=== PATIENT | female | born 1980 | race African-American/Black ===

== ENCOUNTER 2019-01-04 21:04 | Inpatient (IN) | payer SELFPAY ==
[~2019-01-04] VITALS: Ht 160 cm; Wt 83.9 kg
[2019-01-04] MEDS ORDERED: DILTIAZEM HCL 5MG/ML 5ML VIAL IV ONE (21:15)
[2019-01-04 22:03] LABS: BASOPHILS % 0.4 % (0.0-2.0); EOSINOPHILS % 1.2 % (0.0-5.0); HEMATOCRIT. 42.2 % (36.0-48.0); HEMOGLOBIN. 14.4 g/dL (12.0-16.0); LYMPHOCYTES % 18.5 % (20.0-50.0); MEAN CORPUSCULAR HEMOGLOBIN 29.6 pg (28.0-32.0); MEAN CORPUSCULAR VOLUME 86.6 fL (81.0-99.0); MEAN PLATELET VOLUME 8.9 fl (7.4-10.4); MONOCYTES % 6.4 % (2.0-8.0); NEUTROPHILS % 73.5 % (40.0-76.0); PLATELET 312 x1000/uL (130-400); RED BLOOD CELL COUNT 4.87 mill/uL (4.2-5.4); RED CELL DISTRIBUTION WIDTH 12.6 % (11.6-14.6)
[2019-01-04 22:18] LABS: CHLORIDE 104 mEq/L (98-107)
[2019-01-04 22:27] LABS: HCG SCREEN NEGATIVE
[2019-01-04] MEDS ORDERED: DILTIAZEM HCL 60MG TABLET PO ONE (22:45)
[2019-01-04 22:54] LABS: CLARITY URINE CLEAR (CLEAR); COLOR URINE YELLOW (YELLOW); KETONES URINE 1+ (NEGATIVE); LEUKOCYTE ESTERASE URINE NEGATIVE (NEGATIVE); NITRITE URINE NEGATIVE (NEGATIVE); OCCULT BLOOD URINE NEGATIVE (NEGATIVE); PH URINE 7.5 (4.5-8.0); PROTEIN URINE NEGATIVE (NEGATIVE); SPECIFIC GRAVITY URINE 1.007 (1.005-1.030); UROBILINOGEN URINE 0.2 E.U./dL (0.2-1.0)
[2019-01-04 23:13] LABS: *AMPHETAMINES SCREEN URINE NEGATIVE (NEGATIVE); *BARBITURATES SCREEN URINE NEGATIVE (NEGATIVE); *BENZODIAZEPINES SCREEN URINE NEGATIVE (NEGATIVE)
[2019-01-04 23:14] LABS: *COCAINE SCREEN URINE NEGATIVE (NEGATIVE); CANNABINOID URINE SCREEN NEGATIVE (NEGATIVE); METHADONE URINE SCREEN NEGATIVE (NEGATIVE); OPIATES URINE SCREEN NEGATIVE (NEGATIVE); PHENCYCLIDINE URINE SCREEN NEGATIVE (NEGATIVE)
[2019-01-05] VITALS (12 sets, daily range): BP systolic 116–146; BP diastolic 40–93
[2019-01-05] MEDS ORDERED: CLONIDINE 0.1MG TABLET PO PRN (01:30)
[2019-01-05] MEDS ORDERED: IPRATROPIUM/ALBUTEROL 0.5-3(2.5)MG/3ML NEB INH PRN (01:30)
[2019-01-05] MEDS ORDERED: ACETAMINOPHEN 325MG TABLET PO PRN (01:30)
[2019-01-05] MEDS ORDERED: MAGNESIUM/ALUMINUM HYDROXIDE/SIMETHICONE 30ML UDC PO PRN (01:30)
[2019-01-05] MEDS ORDERED: GUAIFENESIN 200MG/10ML SUGAR FREE UDC PO PRN (01:30)
[2019-01-05] MEDS ORDERED: MORPHINE SULFATE 2 MG/ML CPJ (NOT FOR IM USE) IV PRN (01:30)
[2019-01-05] MEDS ORDERED: NA PHOS,M-B/NA PHOS,DI-BA ENEMA 118ML PR PRN (01:30)
[2019-01-05] MEDS ORDERED: LORAZEPAM 2MG/ML CPJ IV PRN (01:30)
[2019-01-05] MEDS ORDERED: ONDANSETRON HCL 4MG/2ML INJ IV PRN (01:30)
[2019-01-05] MEDS ORDERED: DOCUSATE SODIUM 100MG CAPSULE PO PRN (01:30)
[2019-01-05] MEDS ORDERED: HYDROCODONE/ACETAMINOPHEN 10/325MG TABLET PO PRN (01:30)
[2019-01-05] MEDS ORDERED: DIPHENHYDRAMINE 50MG/ML VIAL IV PRN (01:30)
[2019-01-05] MEDS ORDERED: HYDRALAZINE 20MG/ML VIAL IV PRN (01:30)
[2019-01-05] MEDS: LEVOFLOXACIN 500MG PREMIX 100 ML IV SCH (03:04)
[2019-01-05] MEDS: SODIUM CHLORIDE 0.9% INJ 3ML FLUSH IVF SCH ×3 (05:00→21:32)
[2019-01-05 06:09] LABS: CREATINE KINASE 147 IU/L (26-192)
[2019-01-05 06:10] LABS: CREATINE KINASE MB FRACTION < 1.0 ng/mL (0.5-3.6)
[2019-01-05 07:55] LABS: CHLORIDE 107 mEq/L (98-107)
[2019-01-05] MEDS: ASPIRIN 81MG EC TABLET PO SCH (08:40)
[2019-01-05] MEDS ORDERED: ENOXAPARIN 40MG/0.4ML SYR SUBCUT SCH (09:00)
[2019-01-05 17:00] LABS: CREATINE KINASE 120 IU/L (26-192)
[2019-01-05 17:01] LABS: CREATINE KINASE MB FRACTION < 1.0 ng/mL (0.5-3.6)
[2019-01-05] MEDS ORDERED: TC1U15 TP (18:36)
[2019-01-06] VITALS (8 sets, daily range): BP systolic 129–153; BP diastolic 58–97
[2019-01-06] MEDS: LEVOFLOXACIN 500MG PREMIX 100 ML IV SCH (04:26)
[2019-01-06 05:44] LABS: BASOPHILS % 0.3 % (0.0-2.0); EOSINOPHILS % 1.5 % (0.0-5.0); HEMATOCRIT. 45.1 % (36.0-48.0); HEMOGLOBIN. 15.3 g/dL (12.0-16.0); MEAN CORPUSCULAR HEMOGLOBIN 30.3 pg (28.0-32.0); MEAN CORPUSCULAR VOLUME 89.4 fL (81.0-99.0); MONOCYTES % 8.4 % (2.0-8.0); NEUTROPHILS % 54.8 % (40.0-76.0); PLATELET 282 x1000/uL (130-400); RED BLOOD CELL COUNT 5.04 mill/uL (4.2-5.4); RED CELL DISTRIBUTION WIDTH 12.4 % (11.6-14.6)
[2019-01-06 05:45] LABS: CHLORIDE 107 mEq/L (98-107)
[2019-01-06 05:54] LABS: LDL CHOLESTEROL 77 mg/dL (5-100)
[2019-01-06 05:56] LABS: HDL CHOLESTEROL 75 mg/dL (40-59)
[2019-01-06 05:57] LABS: T4 FREE 1.11 ng/dL (0.76-1.46)
[2019-01-06] MEDS: SODIUM CHLORIDE 0.9% INJ 3ML FLUSH IVF SCH (06:08)
[2019-01-06] MEDS ORDERED: ENOXAPARIN 30MG/0.3ML SYR SUBCUT SCH (09:00)
[2019-01-06] MEDS: ASPIRIN 81MG EC TABLET PO SCH (10:04)
== END 2019-01-06 10:30 | disposition home or self-care (01) | DRG 201 ==
LOC: ER 21:31 → 5EST 23:14 → EDBEDREQTM 23:15 → EDBEDREQ 23:15 → ENRESERV 23:34
PROVIDERS: ADMIT Internal Medicine; ATTEND Internal Medicine
DX: I48.91 Unspecified atrial fibrillation (principal); R65.10 Systemic inflammatory response syndrome (SIRS) of non-infectious origin without acute organ dysfunction; E87.6 Hypokalemia; I10 Essential (primary) hypertension; I47.1 Supraventricular tachycardia; Z88.1 Allergy status to other antibiotic agents; Z91.041 Radiographic dye allergy status; Z79.899 Other long term (current) drug therapy; Z88.8 Allergy status to other drugs, medicaments and biological substances
CPT/HCPCS: 36415; 71045; 80048; 80061; 80305; 81003; 82550; 82553; 83880; 84439; 84443; 84484; 84703; 85379; 93005; 93306; 96374; 96375; 99291; J1650; J1956; J3490